=== PATIENT | female | born 1990 | race American Indian/Alaskan Native ===

== ENCOUNTER 2017-09-10 08:57 | Emergency (ER) | payer MEDICAID ==
[2017-09-10 09:54] LABS: Basophils % (Auto) 0.7 % (0.0-1.8); Eosinophils # (Auto) 0.2 K/mm3 (0.0-0.4); Eosinophils % (Auto) 4.9 % (0.0-4.3); Hemoglobin 11.8 gm/dl (10.1-14.3); Lymphocytes # (Auto) 1.6 K/mm3 (1.2-5.4); Lymphocytes % (Auto) 35.7 % (13.4-35.0); Mean Corpuscular HGB Conc 33 % (30-34); Mean Corpuscular Hemoglobin 32 pg (28-32); Mean Corpuscular Volume 98 fl (79-97); Monocytes # (Auto) 0.2 K/mm3 (0.0-0.8); Monocytes % (Auto) 5.6 % (0.0-7.3); Platelet Count 328 K/mm3 (140-440); Red Cell Distribution Width 12.6 % (13.2-15.2)
[2017-09-10 10:52] LABS: Bilirubin,Urine NEG (Negative); Blood,Urine LG (Negative); Color,Urine Yellow (Yellow); Mucus,Urine FEW /HPF; Nitrite,Urine NEG (Negative); Protein,Urine <15 mg/dL mg/dL (Negative); Urobilinogen,Urine < 2.0 mg/dL (<2.0)
[2017-09-10 11:10] LABS: WBC,Urine < 1.0 /HPF (0.0-6.0)
--- NOTE | 2017-09-10 11:43 | Ultrasound Report ---
FINAL REPORT PROCEDURE: US OB TRANSVAGINAL TECHNIQUE: Real-time transvaginal sonography of the pelvis was performed. HISTORY: ectopic with Methotrexate injections COMPARISON: None FINDINGS: The endometrial stripe measures 1.3 centimeters thick. No intrauterine gestation is identified. Small free fluid is present within the pelvis. The right ovary measures 4.9 x 2.2 x 4.1 centimeters and contains 2 cysts 2.1 x 2.1 x 1.8 centimeters and 1.4 x 1.0 x 1.2 centimeters. There is normal blood flow to the right ovary. The left ovary measures 3.2 x 1.6 x 2.1 centimeters and contains subcentimeter follicles. In the left adnexal region there appears to be a 2.9 x 1.9 x 2.2 centimeter lesion with internal 1.8 x 1.2 x 1.4 centimeter cystic focus. There is no evident yolk sac or pole. IMPRESSION: Left adnexal lesion with internal sac/cyst without yolk sac or pole. This is likely relayed known ectopic . Central cystic component suggested expected gestational age of 6 weeks 5 days. Right ovarian cysts. 1.3 centimeter thick endometrial stripe. No intrauterine gestation identified. Small free fluid within physiologic limits.
--- NOTE | 2017-09-10 11:52 | Ultrasound Report ---
FINAL REPORT PROCEDURE: US OB < = 14 WEEKS FETUS TECHNIQUE: Transabdominal ultrasound of the pelvis was performed. HISTORY: ectopic with Methotrexate injections COMPARISON: None FINDINGS: The uterus measures 9.7 x 6.8 x 6.7 centimeters. The endometrial stripe is 1.3 centimeters thick. There is no intrauterine gestation. The ovaries were better visualized transvaginally. IMPRESSION: Empty uterus. Please see transvaginal report.
[2017-09-10 17:18] VITALS: BP 131/90
--- NOTE | 2017-09-10 17:36 | Emergency Department Report ---
ED General Adult HPI - General Chief complaint: Vaginal Bleeding Stated complaint: ECTOPIC Time Seen by Provider: 09/10/17 17:23 Source: patient Mode of arrival: Ambulatory Limitations: No Limitations - History of Present Illness Initial comments: Patient is 26 years old female recently diagnosed with ectopic at [facility] ER on 08/26/2017 ,she received 1 dose of methotrexate and she was advised to come to the ER for second injection. Severity scale (0 -10): 0 - Related Data Allergies Allergy/AdvReac Type Severity Reaction Status Date / Time No Known Allergies Allergy Unverified 09/10/17 09:22 ED Review of Systems ROS: Stated complaint: ECTOPIC Other details as noted in HPI Comment: All other systems reviewed and negative Constitutional: denies: chills, fever Cardiovascular: denies: chest pain, palpitations Gastrointestinal: denies: abdominal pain, nausea, vomiting, diarrhea Musculoskeletal: denies: back pain ED Past Medical Hx - Past Medical History Previous Medical History?: Yes Additional medical history: Vaginal delivery - Surgical History Past Surgical History?: Yes Additional Surgical History: Cyst right eyebrow - Social History Smoking Status: Current Every Day Smoker Substance Use Type: Alcohol, Marijuana ED Physical Exam - General Limitations: No Limitations General appearance: alert, in no apparent distress - Head Head exam: Present: atraumatic, normocephalic, normal inspection - Eye Eye exam: Present: normal appearance, PERRL - ENT ENT exam: Present: normal exam, normal orophraynx, mucous membranes moist - Neck Neck exam: Present: normal inspection, full ROM. Absent: tenderness, meningismus, lymphadenopathy - Respiratory Respiratory exam: Present: normal lung sounds bilaterally. Absent: respiratory distress, chest wall tenderness - Cardiovascular Cardiovascular Exam: Present: regular rate, normal rhythm, normal heart sounds - GI/Abdominal GI/Abdominal exam: Present: soft, normal bowel sounds. Absent: distended, tenderness, guarding, rebound, rigid, organomegaly, mass, bruit, pulsatile mass , hernia - Extremities Exam Extremities exam: Present: normal inspection, full ROM, normal capillary refill - Back Exam Back exam: Present: normal inspection. Absent: tenderness, CVA tenderness (R), CVA tenderness (L) - Neurological Exam Neurological exam: Present: alert, oriented X3, CN II-XII intact, normal gait - Skin Skin exam: Present: warm, intact, normal color ED Course Vital Signs 09/10/17 09/10/17 09:23 17:17 Temperature 98.8 F 98.8 F Pulse Rate 94 H 91 H Respiratory 18 20 Rate Blood Pressure 117/72 131/90 O2 Sat by Pulse 94 100 Oximetry ED Medical Decision Making - Lab Data Result diagrams: 09/10/17 09:39 - Medical Decision Making Discussed with his doctor Umesh,he advised to give methotrexate and asked patient to follow up with her OB doctor in the office. Critical care attestation.: If time is entered above; I have spent that time in minutes in the direct care of this critically ill patient, excluding procedure time. ED Disposition Clinical Impression: Ectopic Disposition: DC-01 TO HOME OR SELFCARE Is pt being admited?: No Condition: Stable Instructions: Ectopic (ED) Referrals: PRIMARY CARE, [Primary Care Provider] - 3-5 Days
[2017-09-10] MEDS ORDERED: METHOTREXATE IM ONE (19:15)
== END 2017-09-10 20:07 | disposition home or self-care (01) ==
LOC: ED 08:57
DX: O00.90 Unspecified ectopic pregnancy without intrauterine pregnancy (principal); F17.200 Nicotine dependence, unspecified, uncomplicated; F12.10 Cannabis abuse, uncomplicated; Z3A.01 Less than 8 weeks gestation of pregnancy
CPT/HCPCS: 36415; 76801; 76817; 81001; 84702; 85025; 86850; 86900; 86901; 96372; 99284; J9260

== ENCOUNTER 2022-02-12 13:00 | Inpatient (IN) | payer SELFPAY ==
[2022-02-12 13:44] LABS: Basophils % (Auto) 0.6 % (0.0-1.8); Eosinophils # (Auto) 0.1 K/mm3 (0.0-0.4); Eosinophils % (Auto) 1.2 % (0.0-4.3); Hematocrit 42.8 % (30.3-42.9); Hemoglobin 14.3 gm/dl (10.1-14.3); Lymphocytes % (Auto) 18.5 % (13.4-35.0); Mean Corpuscular HGB Conc 34 % (30-34); Mean Corpuscular Volume 99 fl (79-97); Monocytes # (Auto) 0.7 K/mm3 (0.0-0.8); Monocytes % (Auto) 13.6 % (0.0-7.3); Platelet Count 300 K/mm3 (140-440); Red Blood Count 4.31 M/mm3 (3.65-5.03); Red Cell Distribution Width 12.9 % (13.2-15.2)
[2022-02-12 14:04] LABS: Blood Urea Nitrogen 8 mg/dL (7-17); Calcium 9.8 mg/dL (8.4-10.2); Hemolysis Index 12
[2022-02-12 14:13] LABS: BUN/Creatinine Ratio 11
[2022-02-12] MEDS ORDERED: ONDANSETRON 4 MG ODT TAB PO ONE (15:26)
[2022-02-12] MEDS ORDERED: MORPHINE 4 MG/1 ML INJ IM ONE ×2 (15:26→18:08)
--- NOTE | 2022-02-12 16:57 | Ultrasound Report ---
ULTRASOUND ABDOMEN, LIMITED (RIGHT UPPER QUADRANT) INDICATION / CLINICAL INFORMATION: ruq pain. COMPARISON: None available. FINDINGS: PANCREAS: Visualized portion shows no significant abnormality. LIVER: No significant abnormality. GALLBLADDER: Positive sonographic Menon's sign with multiple stones within the gallbladder lumen. BILE DUCTS: No significant abnormality. Common bile duct measures 12 mm. FREE FLUID: None. ADDITIONAL FINDINGS: None. IMPRESSION: 1. Cholelithiasis with a positive sonographic Menon's sign concerning for acute cholecystitis. 2. Dilation of the common bile duct without evidence of choledocholithiasis. Signer Name: Joe Min DO Signed: 02/12/2022 4:52 PM Workstation Name: [id number]
[2022-02-12 18:14] LABS: HCG Qualitative,Urine Negative (Negative)
[2022-02-12 18:16] LABS: Bilirubin,Urine NEG (Negative); Blood,Urine NEG (Negative); Color,Urine Yellow (Yellow); Mucus,Urine 3+ /HPF; Protein,Urine <15 mg/dL mg/dL (Negative); Urobilinogen,Urine < 2.0 mg/dL (<2.0)
--- NOTE | 2022-02-12 19:08 | Cat Scan Report ---
CT ABDOMEN AND PELVIS WITH CONTRAST HISTORY: abdominal pain 100 ml omni 300 . COMPARISON: None. TECHNIQUE: CT images of the abdomen and pelvis were obtained following administration of intravenous contrast. All CT scans at this location are performed using CT dose reduction for ALARA by means of automated exposure control. CONTRAST: 100 ml of intravenous contrast administered. FINDINGS: Lungs/bones: Lung bases are clear. No acute osseous abnormality or significant degenerative change. Abdomen/pelvis: The liver, spleen, pancreas, adrenals, kidneys, and proximal GI tract appear unremar kable. The gallbladder is distended with internal sludge/stone disease and mild wall thickening as well as p ericholecystic fluid. The CBD is also slightly dilated with distal tapering but no obvious stone or m ass on this exam. Urinary bladder is unremarkable. Uterus appears edematous. There is an involuting likely functional c yst in left ovary. Trace pelvic free fluid is present. No acute colonic abnormality identified. IMPRESSION: 1. Abnormal appearance of the gallbladder worrisome for cholecystitis. 2. Abnormal dilatation of the CBD with distal tapering. No obvious stone disease or mass. Consider no nemergent follow-up ERCP or MRCP once clinically feasible. 3. Likely physiologic findings involving the reproductive organs. Signer Name: Irwin Hassan MD Signed: 02/12/2022 7:03 PM Workstation Name: [id number]
[2022-02-12 19:58] LABS: Alanine Aminotransferase 14 units/L (7-56)
[2022-02-12 20:02] LABS: Bilirubin,Direct < 0.2 mg/dL (0-0.2)
--- NOTE | 2022-02-12 20:34 | Emergency Department Report ---
ED Abdominal Pain HPI - General Chief Complaint: Abdominal Pain Stated Complaint: RUQ PAIN Time Seen by Provider: 02/12/22 15:11 Source: patient Mode of arrival: Ambulatory Limitations: No Limitations - History of Present Illness Initial Comments: 31-year-old black female with a past medical history of gallstones presents to the emergency department for evaluation of few day history of worsening right upper quadrant pain along with nausea and vomiting. She states that pain has been 10 out of 10, and she has been unable to eat anything for the past 2 to 3 days because whenever she eats it makes the pain significantly worse. She states that she has also had intermittent fever but denies dysuria and vaginal discharge. She states that her last menstrual period was January 20. MD Complaint: abdominal pain -: Gradual, days(s) (2-3) Location: RUQ Radiation: none Migration to: no migration Severity scale (0 -10): 10 Quality: aching Consistency: constant Worsens With: eating Associated Symptoms: nausea, vomiting, fever. denies: diarrhea, chills, dysuria, hematemesis, hematochezia, melena, hematuria, anorexia, syncope - Related Data LMP (females 10-50): 3 weeks Allergies Allergy/AdvReac Type Severity Reaction Status Date / Time No Known Allergies Allergy Verified 02/12/22 13:13 ED Review of Systems ROS: Stated complaint: RUQ PAIN Other details as noted in HPI Comment: All other systems reviewed and negative Constitutional: fever, weakness. denies: chills, diaphoresis, malaise Eyes: denies: vision change ENT: denies: throat pain, congestion Respiratory: denies: cough, orthopnea, shortness of breath, SOB with exertion, SOB at rest, stridor, wheezing Cardiovascular: denies: chest pain, palpitations, dyspnea on exertion, ort hopnea, edema, syncope, paroxysmal nocturnal dyspnea Gastrointestinal: abdominal pain, nausea, vomiting. denies: diarrhea, hematemesis, melena Genitourinary: denies: urgency, dysuria, frequency, hematuria, discharge Musculoskeletal: back pain Skin: denies: rash, lesions Neurological: denies: headache, weakness Hematological/Lymphatic: denies: easy bleeding, easy bruising ED Past Medical Hx - Past Medical History Additional medical history: Vaginal delivery - Surgical History Additional Surgical History: Cyst right eyebrow - Social History Smoking Status: Current Every Day Smoker Substance Use Type: Alcohol, Marijuana ED Physical Exam - General Limitations: No Limitations General appearance: alert, in no apparent distress - Head Head exam: Present: atraumatic, normocephalic - Eye Eye exam: Present: normal appearance. Absent: conjunctival injection - Neck Neck exam: Present: normal inspection, full ROM. Absent: tenderness, lymphadenopathy - Respiratory Respiratory exam: Present: normal lung sounds bilaterally. Absent: respiratory distress, wheezes, rales, rhonchi, stridor, chest wall tenderness - Cardiovascular Cardiovascular Exam: Present: regular rate, normal heart sounds - GI/Abdominal GI/Abdominal exam: Present: soft, tenderness (Right upper quadrant), normal bowel sounds. Absent: distended, guarding, rebound, rigid - Extremities Exam Extremities exam: Present: normal inspection, normal capillary refill. Absent: pedal edema, joint swelling, calf tenderness - Back Exam Back exam: Present: normal inspection, tenderness. Absent: CVA tenderness (R), CVA tenderness (L), vertebral tenderness - Neurological Exam Neurological exam: Present: alert, oriented X3, normal gait - Psychiatric Psychiatric exam: Present: normal affect, normal mood - Skin Skin exam: Present: warm, dry, intact, normal color ED Course Vital Signs 02/12/22 13:11 Temperature 98.4 F Pulse Rate 98 H Respiratory 18 Rate Blood Pressure 120/83 [Left] O2 Sat by Pulse 99 Oximetry ED Medical Decision Making - Lab Data Result diagrams: 02/12/22 13:18 02/12/22 13:18 - Radiology Data Radiology results: report reviewed, image reviewed Ultrasound abdomen limited: FINDINGS: PANCREAS: Visualized portion shows no significant abnormality. LIVER: No significant abnormality. GALLBLADDER: Positive sonographic Menon's sign with multiple stones within the gallbladder lumen. BILE DUCTS: No significant abnormality. Common bile duct measures 12 mm. FREE FLUID: None. ADDITIONAL FINDINGS: None. IMPRESSION: 1. Cholelithiasis with a positive sonographic Menon's sign concerning for acute cholecystitis. 2. Dilation of the common bile duct without evidence of choledocholithiasis. CT abdomen and pelvis with contrast:. FINDINGS: Lungs/bones: Lung bases are clear. No acute osseous abnormality or significant degenerative change. Abdomen/pelvis: The liver, spleen, pancreas, adrenals, kidneys, and proximal GI tract appear unremarkable. The gallbladder is distended with internal sludge/stone disease and mild wall thickening as well as pericholecystic fluid. The CBD is also slightly dilated with distal tapering but no obvious stone or mass on this exam. Urinary bladder is unremarkable. Uterus appears edematous. There is an involuting likely functional cyst in left ovary. Trace pelvic free fluid is present. No acute colonic abnormality identified. IMPRESSION: 1. Abnormal appearance of the gallbladder worrisome for cholecystitis. 2. Abnormal dilatation of the CBD with distal tapering. No obvious stone disease or mass. Consider nonemergent follow-up ERCP or MRCP once clinically feasible. 3. Likely physiologic findings involving the reproductive organs. - Medical Decision Making 31-year-old black female with a past medical history of gallstones presents to the emergency department for evaluation of few day history of worsening right upper quadrant pain along with nausea and vomiting. She states that pain has been 10 out of 10, and she has been unable to eat anything for the past 2 to 3 days because whenever she eats it makes the pain significantly worse. She states that she has also had intermittent fever but denies dysuria and vaginal discharge. She states that her last menstrual period was January 20. Ultrasound abdomen limited positive for cholelithiasis with positive Menon sign concerning for acute cholecystitis. CT abdomen and pelvis confirmed probable acute cholecystitis. Patient discussed with Dr. Chaudhari, general surgery, who stated patient should be admitted to the hospitalist service for evaluation and possible cholecystectomy in the a.m. per her service. IV fluids, Zosyn, and pain management started. Patient will be kept NPO. Case discussed with Dr. Pereira who will admit patient for evaluation in the a.m. by general surgery. Plan of care discussed with patient and she verbalizes understanding of and agreement with. Critical care attestation.: If time is entered above; I have spent that time in minutes in the direct care of this critically ill patient, excluding procedure time. ED Disposition Clinical Impression: Acute cholecystitis Disposition: ADMITTED INPATIENT Is pt being admited?: Yes Does the pt Need Aspirin: No Condition: Stable Instructions: Abdominal Pain (ED)
[2022-02-12] MEDS ORDERED: PIPERACIL/TAZOBACTA 4.5/NS 100 4.5 GM/100 ML VIAL IV ONE (21:18)
[2022-02-12] MEDS ORDERED: ONDANSETRON 4 MG/2 ML INJ IV ONE (21:19)
[2022-02-12] MEDS ORDERED: MORPHINE 4 MG/1 ML INJ IV ONE (21:19)
[2022-02-12] MEDS ORDERED: SODIUM CHLORIDE 0.9% 1000 ML 1,000 ML IV SCH (21:30)
[2022-02-12] MEDS ORDERED: MORPHINE 4 MG/1 ML INJ IV PRN (21:33)
[2022-02-12] MEDS ORDERED: ONDANSETRON 4 MG/2 ML INJ IV PRN (21:33)
[2022-02-12] MEDS ORDERED: ALBUTEROL 2.5 MG/3 ML NEBU IH PRN (21:33)
[2022-02-12] MEDS ORDERED: ACETAMINOPHEN 325 MG TAB PO PRN (21:33)
--- NOTE | 2022-02-12 21:39 | History and Physical Report ---
History of Present Illness Date of examination: 02/12/22 Date of admission: 02/12/22 Chief complaint: Abdominal pain Right upper quadrant pain History of present illness: 31-year-old black female with a past medical history of gallstones presents to the emergency department for evaluation of few day history of worsening right upper quadrant pain along with nausea and vomiting. She states that pain has been 10 out of 10, and she has been unable to eat anything for the past 2 to 3 days because whenever she eats it makes the pain significantly worse. She states that she has also had intermittent fever but denies dysuria and vaginal discharge. She states that her last menstrual period was January 20. Ultrasound abdomen limited positive for cholelithiasis with positive Menon sign concerning for acute cholecystitis. CT abdomen and pelvis confirmed probable acute cholecystitis. Patient discussed with Dr. Chaudhari, general surgery, who stated patient should be admitted to the hospitalist service for evaluation and possible cholecystectomy in the a.m. IV fluids, Zosyn, and pain management started. Patient will be kept NPO. Past History Past Medical History: other (Vaginal delivery) Past Surgical History: Other (Cyst right eyebrow) Social history: smoking, alcohol abuse, other (Marijuana abuse) Family history: no significant family history Medications and Allergies Allergies Allergy/AdvReac Type Severity Reaction Status Date / Time No Known Allergies Allergy Verified 02/12/22 13:13 Active Meds: Active Medications Sodium Chloride (Nacl 0.9% 1000 Ml) 1,000 mls @ 125 mls/hr IV DIRECT FANNIE Piperacillin Sod/Tazobactam Sod (Zosyn/Ns 4.5gm/100ml) 4.5 gm in 100 mls @ 200 mls/hr IV ONCE ONE; Protocol Stop: 02/12/22 21:47 Review of Systems All systems: negative Gastrointestinal: abdominal pain, nausea, vomiting, other (Right upper quadrant pain) Exam - Constitutional Vitals: Temp Pulse Resp BP Pulse Ox 98.4 F 98 H 18 120/83 99 02/12/22 13:11 02/12/22 13:11 02/12/22 13:11 02/12/22 13:11 02/12/22 13:11 General appearance: Present: no acute distress, well-nourished - EENT Eyes: Present: PERRL ENT: hearing intact, clear oral mucosa - Neck Neck: Present: supple, normal ROM - Respiratory Respiratory effort: normal Respiratory: bilateral: CTA - Cardiovascular Heart Sounds: Present: S1 & S2. Absent: rub, click - Extremities Extremities: pulses symmetrical, No edema Peripheral Pulses: within normal limits - Abdominal General gastrointestinal: Present: soft, non-tender, non-distended, normal bowel sounds Female genitourinary: Present: normal - Integumentary Integumentary: Present: clear, warm, dry - Musculoskeletal Musculoskeletal: gait normal, strength equal bilaterally - Psychiatric Psychiatric: appropriate mood/affect, intact judgment & insight - Neurologic Neurologic: CNII-XII intact, moves all extremities Results - Labs CBC & Chem 7: 02/12/22 13:18 02/12/22 13:18 Labs: Laboratory Last Values WBC 5.5 K/mm3 (4.5-11.0) 02/12/22 13:18 RBC 4.31 M/mm3 (3.65-5.03) 02/12/22 13:18 Hgb 14.3 gm/dl (10.1-14.3) 02/12/22 13:18 Hct 42.8 % (30.3-42.9) 02/12/22 13:18 MCV 99 fl (79-97) H 02/12/22 13:18 MCH 33 pg (28-32) H 02/12/22 13:18 MCHC 34 % (30-34) 02/12/22 13:18 RDW 12.9 % (13.2-15.2) L 02/12/22 13:18 Plt Count 300 K/mm3 (140-440) 02/12/22 13:18 Lymph % (Auto) 18.5 % (13.4-35.0) 02/12/22 13:18 [place] % (Auto) 13.6 % (0.0-7.3) H 02/12/22 13:18 Eos % (Auto) 1.2 % (0.0-4.3) 02/12/22 13:18 Baso % (Auto) 0.6 % (0.0-1.8) 02/12/22 13:18 Lymph # (Auto) 1.0 K/mm3 (1.2-5.4) L 02/12/22 13:18 [place] # (Auto) 0.7 K/mm3 (0.0-0.8) 02/12/22 13:18 Eos # (Auto) 0.1 K/mm3 (0.0-0.4) 02/12/22 13:18 Baso # (Auto) 0.0 K/mm3 (0.0-0.1) 02/12/22 13:18 Seg Neutrophils % 66.1 % (40.0-70.0) 02/12/22 13:18 Seg Neutrophils # 3.6 K/mm3 (1.8-7.7) 02/12/22 13:18 Sodium 136 mmol/L (137-145) L 02/12/22 13:18 Potassium 4.6 mmol/L (3.6-5.0) 02/12/22 13:18 Chloride 101.4 mmol/L (98-107) 02/12/22 13:18 Carbon Dioxide 25 mmol/L (22-30) 02/12/22 13:18 Anion Gap 14 mmol/L 02/12/22 13:18 BUN 8 mg/dL (7-17) 02/12/22 13:18 Creatinine 0.7 mg/dL (0.6-1.2) 02/12/22 13:18 Estimated GFR > 60 ml/min 02/12/22 13:18 BUN/Creatinine Ratio 11 % 02/12/22 13:18 Glucose 113 mg/dL (65-100) H 02/12/22 13:18 Calcium 9.8 mg/dL (8.4-10.2) 02/12/22 13:18 Total Bilirubin 0.30 mg/dL (0.1-1.2) 02/12/22 13:18 Direct Bilirubin < 0.2 mg/dL (0-0.2) 02/12/22 13:18 Indirect Bilirubin 0.1 mg/dL 02/12/22 13:18 AST 18 units/L (5-40) 02/12/22 13:18 ALT 14 units/L (7-56) 02/12/22 13:18 Alkaline Phosphatase 81 units/L (35-129) 02/12/22 13:18 Total Protein 8.9 g/dL (6.3-8.2) H 02/12/22 13:18 Albumin 5.0 g/dL (3.9-5) 02/12/22 13:18 Albumin/Globulin Ratio 1.3 % 02/12/22 13:18 Lipase 18 units/L (13-60) 02/12/22 03:18 Urine Color Yellow (Yellow) 02/12/22 Unknown Urine Turbidity Clear (Clear) 02/12/22 Unknown Urine pH 5.0 (5.0-7.0) 02/12/22 Unknown Ur Specific [place] 1.019 (1.003-1.030) 02/12/22 Unknown Urine Protein <15 mg/dl mg/dL (Negative) 02/12/22 Unknown Urine Glucose (UA) Neg mg/dL (Negative) 02/12/22 Unknown Urine Ketones 80 mg/dL (Negative) 02/12/22 Unknown Urine Blood Neg (Negative) 02/12/22 Unknown Urine Nitrite Neg (Negative) 02/12/22 Unknown Ur Reducing Substances Not Reportable 02/12/22 Unknown Urine Bilirubin Neg (Negative) 02/12/22 Unknown Urine Ictotest Not Reportable 02/12/22 Unknown Urine Urobilinogen < 2.0 mg/dL (<2.0) 02/12/22 Unknown Ur Leukocyte Esterase Neg (Negative) 02/12/22 Unknown Urine WBC (Auto) 1.0 /HPF (0.0-6.0) 02/12/22 Unknown Urine RBC (Auto) 1.0 /HPF (0.0-6.0) 02/12/22 Unknown U Epithel Cells (Auto) 2.0 /HPF (0-13.0) 02/12/22 Unknown Urine Mucus 3+ /HPF 02/12/22 Unknown Urine HCG, Qual Negative (Negative) 02/12/22 Unknown - Imaging and Cardiology CT scan - abdomen: report reviewed Assessment and Plan VTE prophylaxis?: Chemical Plan of care discussed with patient/family: Yes - Patient Problems (1) Acute cholecystitis Current Visit: Yes Status: Acute Plan to address problem: Admit the patient to the medical floor. NPO. D5 half-normal saline at the rate of 100 cc/h. Pepcid 20 mg IV every 12 hours. Zosyn 4.5 g IV every 8 hours. Morphine 2 mg IV every 4 hours as needed. Reconsult surgery for evaluation and possible cholecystectomy in the morning. Recheck CBC BMP in the morning (2) Tobacco abuse Current Visit: Yes Status: Acute Plan to address problem: We counseled the patient regarding quitting smoking. We put the patient on olga aiden patch (3) Alcohol abuse Current Visit: Yes Status: Acute Plan to address problem: We counseled the patient regarding quit drinking. We also put the patient on thiamine folic acid and banana bag (4) DVT prophylaxis Current Visit: Yes Status: Acute Plan to address problem: Heparin 5000 units subcu every 12 hours for DVT prophylaxis. Pepcid 20 mg IV every 12 hours for GI prophylaxis. Patient is a full code
[2022-02-12] MEDS ORDERED: D5W/0.45% NACL 1,000 ML IV SCH (22:00)
[2022-02-12] MEDS: MORPHINE 2 MG/1 ML INJ IV PRN (23:18)
[2022-02-13] MEDS ORDERED: ZOLPIDEM 5 MG TAB PO PRN (00:11)
[2022-02-13] MEDS: THIAMINE 100 MG, FOLIC ACID 1 MG, MULTIPLE VITAMIN INJ, ADULT 10 ML in SODIUM CHLORIDE ... IV SCH (02:02)
[2022-02-13] MEDS: MORPHINE 2 MG/1 ML INJ IV PRN ×3 (02:25→10:51)
[2022-02-13] MEDS: IPRATROPIUM/ALBUTEROL SULFATE 3 ML AMPUL.NEB IH SCH ×2 (03:03→09:00)
[2022-02-13] MEDS: PIPERACIL/TAZOBACTA 4.5/NS 100 4.5 GM/100 ML VIAL IV SCH ×3 (06:04→21:23)
[2022-02-13 06:26] LABS: Basophils % (Auto) 0.3 % (0.0-1.8); Eosinophils % (Auto) 0.6 % (0.0-4.3); Hematocrit 37.7 % (30.3-42.9); Hemoglobin 12.8 gm/dl (10.1-14.3); Lymphocytes % (Auto) 14.9 % (13.4-35.0); Mean Corpuscular HGB Conc 34 % (30-34); Mean Corpuscular Volume 98 fl (79-97); Monocytes # (Auto) 0.7 K/mm3 (0.0-0.8); Monocytes % (Auto) 10.8 % (0.0-7.3); Platelet Count 254 K/mm3 (140-440); Red Blood Count 3.84 M/mm3 (3.65-5.03); Red Cell Distribution Width 12.2 % (13.2-15.2)
[2022-02-13 06:35] LABS: INR 0.88 (0.87-1.13)
[2022-02-13 06:46] LABS: Alanine Aminotransferase 11 units/L (7-56); Albumin 4.1 g/dL (3.9-5); Blood Urea Nitrogen 6 mg/dL (7-17); Calcium 8.8 mg/dL (8.4-10.2); Hemolysis Index 5
[2022-02-13 06:55] LABS: BUN/Creatinine Ratio 12
[2022-02-13] MEDS: FAMOTIDINE 20 MG/2 ML INJ IV SCH ×3 (07:31→21:23)
[2022-02-13] MEDS: HEPARIN 5,000 UNIT/1 ML VIAL SUB-Q SCH ×3 (07:31→21:23)
--- NOTE | 2022-02-13 09:00 | Progress Note ---
Assessment and Plan Assessment and plan: --Acute cholecystitis Continue NPO. IV fluids IV Protonix , pain medications, IV antibiotics Follow surgery evaluation and recommendations For possible cholecystectomy -- Abnormal dilation of CBD ; Follow surgery evaluation , consider GI evaluation if needed consider MRCP, supportive care --Ongoing tobacco abuse Smoking cessation counseling done , strongly advised to quit tobacco use Risks of tobacco use explained in detail .patient verbalized understanding Nicotine patch as needed , spent 15 minutes counseling the patient --History of alcohol abuse Patient strongly advised to quit alcohol use If she has a chronic alcohol problem, advised to join alcohol Anonymous support group I advised her to seek alcohol rehabilitation when she is medically stable Thiamine folic acid and multivitamin Monitor for any alcohol withdrawal symptoms and initiate CIWA protocols if needed --DVT prophylaxis Subcu heparin. --full CODE STATUS we will closely monitor the patient and adjust management as needed Follow surgery evaluation and recommendations Plan of care reviewed with the patient and her nurse Disposition; follow clinically, follow consultants recommendation Discharge when medically stable History Interval history: I have seen and examined the patient at the bedside this morning Patient's chart and medications reviewed Admitted with right upper quadrant abdominal pain, work-up consistent with acute cholecystitis Surgery consulted, possible cholecystectomy today Patient has mild abdominal discomfort Vital signs reviewed Hospitalist Physical - Constitutional Vitals: Temp Pulse Resp BP Pulse Ox 98.6 F 63 18 133/85 100 02/13/22 06:03 02/13/22 06:03 02/13/22 06:03 02/13/22 06:03 02/13/22 06:03 General appearance: Present: no acute distress, well-nourished - EENT Eyes: Present: PERRL, EOM intact - Neck Neck: Present: supple, normal ROM - Respiratory Respiratory effort: normal Respiratory: bilateral: diminished, negative: rales, rhonchi, wheezing - Cardiovascular Rhythm: regular Heart Sounds: Present: S1 & S2 - Extremities Extremities: no ischemia, No edema - Abdominal General gastrointestinal: soft, tender (No guarding no rigidity), non-distended, normal bowel sounds - Integumentary Integumentary: Present: clear, warm - Psychiatric Psychiatric: appropriate mood/affect, cooperative - Neurologic Neurologic: moves all extremities Results - Labs CBC & Chem 7: 02/13/22 05:46 02/13/22 05:46 Labs: Laboratory Last Values WBC 6.7 K/mm3 (4.5-11.0) 02/13/22 05:46 RBC 3.84 M/mm3 (3.65-5.03) 02/13/22 05:46 Hgb 12.8 gm/dl (10.1-14.3) 02/13/22 05:46 Hct 37.7 % (30.3-42.9) 02/13/22 05:46 MCV 98 fl (79-97) H 02/13/22 05:46 MCH 33 pg (28-32) H 02/13/22 05:46 MCHC 34 % (30-34) 02/13/22 05:46 RDW 12.2 % (13.2-15.2) L 02/13/22 05:46 Plt Count 254 K/mm3 (140-440) 02/13/22 05:46 Lymph % (Auto) 14.9 % (13.4-35.0) 02/13/22 05:46 [place] % (Auto) 10.8 % (0.0-7.3) H 02/13/22 05:46 Eos % (Auto) 0.6 % (0.0-4.3) 02/13/22 05:46 Baso % (Auto) 0.3 % (0.0-1.8) 02/13/22 05:46 Lymph # (Auto) 1.0 K/mm3 (1.2-5.4) L 02/13/22 05:46 [place] # (Auto) 0.7 K/mm3 (0.0-0.8) 02/13/22 05:46 Eos # (Auto) 0.0 K/mm3 (0.0-0.4) 02/13/22 05:46 Baso # (Auto) 0.0 K/mm3 (0.0-0.1) 02/13/22 05:46 Seg Neutrophils % 73.4 % (40.0-70.0) H 02/13/22 05:46 Seg Neutrophils # 4.9 K/mm3 (1.8-7.7) 02/13/22 05:46 PT 12.9 Sec. (12.2-14.9) 02/13/22 05:46 INR 0.88 (0.87-1.13) 02/13/22 05:46 Sodium 137 mmol/L (137-145) 02/13/22 05:46 Potassium 3.7 mmol/L (3.6-5.0) 02/13/22 05:46 Chloride 102.7 mmol/L (98-107) 02/13/22 05:46 Carbon Dioxide 20 mmol/L (22-30) L 02/13/22 05:46 Anion Gap 18 mmol/L 02/13/22 05:46 BUN 6 mg/dL (7-17) L 02/13/22 05:46 Creatinine 0.5 mg/dL (0.6-1.2) L 02/13/22 05:46 Estimated GFR > 60 ml/min 02/13/22 05:46 BUN/Creatinine Ratio 12 % 02/13/22 05:46 Glucose 109 mg/dL (65-100) H 02/13/22 05:46 Calcium 8.8 mg/dL (8.4-10.2) 02/13/22 05:46 Total Bilirubin 0.40 mg/dL (0.1-1.2) 02/13/22 05:46 Direct Bilirubin < 0.2 mg/dL (0-0.2) 02/12/22 13:18 Indirect Bilirubin 0.1 mg/dL 02/12/22 13:18 AST 13 units/L (5-40) 02/13/22 05:46 ALT 11 units/L (7-56) 02/13/22 05:46 Alkaline Phosphatase 82 units/L (35-129) 02/13/22 05:46 Total Protein 7.5 g/dL (6.3-8.2) 02/13/22 05:46 Albumin 4.1 g/dL (3.9-5) 02/13/22 05:46 Albumin/Globulin Ratio 1.2 % 02/13/22 05:46 Lipase 18 units/L (13-60) 02/12/22 03:18 Urine Color Yellow (Yellow) 02/12/22 Unknown Urine Turbidity Clear (Clear) 02/12/22 Unknown Urine pH 5.0 (5.0-7.0) 02/12/22 Unknown Ur Specific [place] 1.019 (1.003-1.030) 02/12/22 Unknown Urine Protein <15 mg/dl mg/dL (Negative) 02/12/22 Unknown Urine Glucose (UA) Neg mg/dL (Negative) 02/12/22 Unknown Urine Ketones 80 mg/dL (Negative) 02/12/22 Unknown Urine Blood Neg (Negative) 02/12/22 Unknown Urine Nitrite Neg (Negative) 02/12/22 Unknown Ur Reducing Substances Not Reportable 02/12/22 Unknown Urine Bilirubin Neg (Negative) 02/12/22 Unknown Urine Ictotest Not Reportable 02/12/22 Unknown Urine Urobilinogen < 2.0 mg/dL (<2.0) 02/12/22 Unknown Ur Leukocyte Esterase Neg (Negative) 02/12/22 Unknown Urine WBC (Auto) 1.0 /HPF (0.0-6.0) 02/12/22 Unknown Urine RBC (Auto) 1.0 /HPF (0.0-6.0) 02/12/22 Unknown U Epithel Cells (Auto) 2.0 /HPF (0-13.0) 02/12/22 Unknown Urine Mucus 3+ /HPF 02/12/22 Unknown Urine HCG, Qual Negative (Negative) 02/12/22 Unknown Jaramillo/IV: Voiding Method Toilet Active Medications - Current Medications Current Medications: Generic Name Dose Route Start Last Admin Trade Name Freq PRN Reason Stop Dose Admin Acetaminophen 650 mg 02/12/22 21:33 Acetaminophen 325 Mg Tab PO Q4H PRN Pain MILD(1-3)/Fever >100.5/IGNACIO Albuterol 2.5 mg 02/12/22 21:33 Albuterol 2.5 Mg/3 Ml Nebu IH Q3HRT PRN Shortness Of Breath Albuterol/Ipratropium 1 ampul 02/13/22 02:00 02/13/22 03:03 Ipratropium/Albuterol Sulfate 3 Ml Ampul.Neb IH Not Given Q6HRT FANNIE Famotidine 20 mg 02/12/22 22:00 02/13/22 07:31 Famotidine 20 Mg/2 Ml Inj IV Not Given BID FANNIE Heparin Sodium (Porcine) 5,000 unit 02/12/22 22:00 02/13/22 07:31 Heparin 5,000 Unit/1 Ml Vial SUB-Q Not Given Q12HR FANNIE Dextrose/Sodium Chloride 1,000 mls @ 100 mls/hr 02/12/22 22:00 02/13/22 06:04 D5/0.45ns IV 100 mls/hr DIRECT FANNIE Administration Piperacillin Sod/Tazobactam Sod 4.5 gm in 100 mls @ 200 mls/hr 02/13/22 06:00 02/13/22 06:04 Zosyn/Ns 4.5gm/100ml IV 200 mls/hr Q8HR FANNIE Administration Protocol Thiamine HCl 100 mg/ Folic 1,011.2 mls @ 250 mls/hr 02/12/22 21:39 02/13/22 02:02 Acid 1 mg/ Multivitamins/ IV 02/14/22 21:38 250 mls/hr Minerals 10 ml/ Sodium DAILY@2300 FANNIE Administration Chloride Morphine Sulfate 2 mg 02/12/22 21:33 02/13/22 06:04 Morphine 2 Mg/1 Ml Inj IV 2 mg Q4H PRN Administration Pain, Moderate (4-6) Morphine Sulfate 4 mg 02/12/22 21:33 Morphine 4 Mg/1 Ml Inj IV Q4H PRN Pain , Severe (7-10) Ondansetron HCl 4 mg 02/12/22 21:33 Ondansetron 4 Mg/2 Ml Inj IV Q8H PRN Nausea And Vomiting Sodium Chloride 10 ml 02/12/22 22:00 02/13/22 07:32 Sodium Chloride 0.9% 10 Ml Flush Syringe IV Not Given BID FANNIE Sodium Chloride 10 ml 02/12/22 21:33 02/13/22 06:05 Sodium Chloride 0.9% 10 Ml Flush Syringe IV 10 ml PRN PRN Administration LINE FLUSH Zolpidem Tartrate 5 mg 02/13/22 00:11 02/13/22 00:56 Zolpidem 5 Mg Tab PO 5 mg QHS PRN Administration Sleep
--- NOTE | 2022-02-13 09:27 | Consultation ---
History of Present Illness Consult date: 02/13/22 Reason for consult: gallstones Chief complaint: GALLSTONES - History of present illness History of present illness: 31-year-old female with a past medical history of gallstones who presents to the emergency room with acute onset right upper quadrant abdominal pain, sharp, severe, radiating to the back for the past 4 days. The patient states it started suddenly and has gradually become worse. She states that she also had associated nausea and bilious emesis. No alleviating or exacerbating factors. She states that several years ago she had pain Eml[place] to this and was seen at an urgent care. She was told that her gallbladder was inflamed and advised to stick to a low-fat diet. She states that she did change her diet and this is her first episode since then. No fevers or chills. No chest pain or shortness of breath. She does complain of a dry mouth. She states for the past few days she is only been drinking water and juice. The pain has not subsided. Past History Past Medical History: other (Vaginal delivery, gallstones) Past Surgical History: Other (Cyst right eyebrow) Social history: smoking, alcohol abuse, other (Marijuana abuse) Family history: no significant family history Medications and Allergies Allergies Allergy/AdvReac Type Severity Reaction Status Date / Time No Known Allergies Allergy Verified 02/12/22 13:13 Active Meds: Active Medications Acetaminophen (Acetaminophen 325 Mg Tab) 650 mg PO Q4H PRN PRN Reason: Pain MILD(1-3)/Fever >100.5/IGNACIO Albuterol (Albuterol 2.5 Mg/3 Ml Nebu) 2.5 mg IH Q3HRT PRN PRN Reason: Shortness Of Breath Albuterol/Ipratropium (Ipratropium/Albuterol Sulfate 3 Ml Ampul.Neb) 1 ampul IH Q6HRT [facility] Last Admin: 02/13/22 09:00 Dose: 1 ampul Famotidine (Famotidine 20 Mg/2 Ml Inj) 20 mg IV BID [facility] Last Admin: 02/13/22 07:31 Dose: Not Given Heparin Sodium (Porcine) (Heparin 5,000 Unit/1 Ml Vial) 5,000 unit SUB-Q Q12HR [facility] Last Admin: 02/13/22 07:31 Dose: Not Given Dextrose/Sodium Chloride (D5/0.45ns) 1,000 mls @ 100 mls/hr IV DIRECT FANNIE Last Admin: 02/13/22 06:04 Dose: 100 mls/hr Piperacillin Sod/Tazobactam Sod (Zosyn/Ns 4.5gm/100ml) 4.5 gm in 100 mls @ 200 mls/hr IV Q8HR FANNIE; Protocol Last Admin: 02/13/22 06:04 Dose: 200 mls/hr Thiamine HCl 100 mg/ Folic Acid 1 mg/ Multivitamins/Minerals 10 ml/ Sodium Chlor gerry 1,011.2 mls @ 250 mls/hr IV DAILY@2300 [facility] Stop: 02/14/22 21:38 Last Admin: 02/13/22 02:02 Dose: 250 mls/hr Morphine Sulfate (Morphine 2 Mg/1 Ml Inj) 2 mg IV Q4H PRN PRN Reason: Pain, Moderate (4-6) Last Admin: 02/13/22 06:04 Dose: 2 mg Morphine Sulfate (Morphine 4 Mg/1 Ml Inj) 4 mg IV Q4H PRN PRN Reason: Pain , Severe (7-10) Ondansetron HCl (Ondansetron 4 Mg/2 Ml Inj) 4 mg IV Q8H PRN PRN Reason: Nausea And Vomiting Sodium Chloride (Sodium Chloride 0.9% 10 Ml Flush Syringe) 10 ml IV BID [facility] Last Admin: 02/13/22 07:32 Dose: Not Given Sodium Chloride (Sodium Chloride 0.9% 10 Ml Flush Syringe) 10 ml IV PRN PRN PRN Reason: LINE FLUSH Last Admin: 02/13/22 06:05 Dose: 10 ml Zolpidem Tartrate (Zolpidem 5 Mg Tab) 5 mg PO QHS PRN PRN Reason: Sleep Last Admin: 02/13/22 00:56 Dose: 5 mg Review of Systems All systems: negative (10 point ROS performed and negative except for that listed in HPI) Exam Vital Signs Temp Pulse Resp BP Pulse Ox 98.4 F 98 H 18 120/83 99 02/12/22 13:11 02/12/22 13:11 02/12/22 13:11 02/12/22 13:11 02/12/22 13:11 Narrative exam: Gen.: Awake, alert, oriented x3. No apparent distress ENT: Trachea midline. No lymphadenopathy. No scleral icterus or conjunctival pallor CV: S1, S2 present Respiratory: No audible wheezes Abdomen: Soft, nondistended, right upper quadrant tenderness to palpation. Voluntary guarding. No rebound, rigidity Extremities: No clubbing, cyanosis, edema Results - Labs 02/13/22 05:46 02/13/22 05:46 Abnormal lab results 02/12/22 02/12/22 02/12/22 Range/Units 13:18 13:18 13:18 MCV 99 H (79-97) fl MCH 33 H (28-32) pg RDW 12.9 L (13.2-15.2) % [place] % (Auto) 13.6 H (0.0-7.3) % Lymph # (Auto) 1.0 L (1.2-5.4) K/mm3 Seg Neutrophils % (40.0-70.0) % Sodium 136 L (137-145) mmol/L Carbon Dioxide (22-30) mmol/L BUN (7-17) mg/dL Creatinine (0.6-1.2) mg/dL Glucose 113 H (65-100) mg/dL Total Protein 8.9 H (6.3-8.2) g/dL 02/13/22 02/13/22 Range/Units 05:46 05:46 MCV 98 H (79-97) fl MCH 33 H (28-32) pg RDW 12.2 L (13.2-15.2) % [place] % (Auto) 10.8 H (0.0-7.3) % Lymph # (Auto) 1.0 L (1.2-5.4) K/mm3 Seg Neutrophils % 73.4 H (40.0-70.0) % Sodium (137-145) mmol/L Carbon Dioxide 20 L (22-30) mmol/L BUN 6 L (7-17) mg/dL Creatinine 0.5 L (0.6-1.2) mg/dL Glucose 109 H (65-100) mg/dL Total Protein (6.3-8.2) g/dL Diabetes panel 02/12/22 02/12/22 02/13/22 Range/Units 13:18 13:18 05:46 Sodium 136 L 137 (137-145) mmol/L Potassium 4.6 3.7 (3.6-5.0) mmol/L Chloride 101.4 102.7 (98-107) mmol/L Carbon Dioxide 25 20 L (22-30) mmol/L BUN 8 6 L (7-17) mg/dL Creatinine 0.7 0.5 L (0.6-1.2) mg/dL Glucose 113 H 109 H (65-100) mg/dL Calcium 9.8 8.8 (8.4-10.2) mg/dL AST 18 13 (5-40) units/L ALT 14 11 (7-56) units/L Alkaline Phosphatase 81 82 (35-129) units/L Total Protein 8.9 H 7.5 (6.3-8.2) g/dL Albumin 5.0 4.1 (3.9-5) g/dL Calcium panel 02/12/22 02/12/22 02/13/22 Range/Units 13:18 13:18 05:46 Calcium 9.8 8.8 (8.4-10.2) mg/dL Albumin 5.0 4.1 (3.9-5) g/dL Pituitary panel 02/12/22 02/13/22 Range/Units 13:18 05:46 Sodium 136 L 137 (137-145) mmol/L Potassium 4.6 3.7 (3.6-5.0) mmol/L Chloride 101.4 102.7 (98-107) mmol/L Carbon Dioxide 25 20 L (22-30) mmol/L BUN 8 6 L (7-17) mg/dL Creatinine 0.7 0.5 L (0.6-1.2) mg/dL Glucose 113 H 109 H (65-100) mg/dL Calcium 9.8 8.8 (8.4-10.2) mg/dL Adrenal panel 02/12/22 02/12/22 02/13/22 Range/Units 13:18 13:18 05:46 Sodium 136 L 137 (137-145) mmol/L Potassium 4.6 3.7 (3.6-5.0) mmol/L Chloride 101.4 102.7 (98-107) mmol/L Carbon Dioxide 25 20 L (22-30) mmol/L BUN 8 6 L (7-17) mg/dL Creatinine 0.7 0.5 L (0.6-1.2) mg/dL Glucose 113 H 109 H (65-100) mg/dL Calcium 9.8 8.8 (8.4-10.2) mg/dL Total Bilirubin 0.30 0.40 (0.1-1.2) mg/dL AST 18 13 (5-40) units/L ALT 14 11 (7-56) units/L Alkaline Phosphatase 81 82 (35-129) units/L Total Protein 8.9 H 7.5 (6.3-8.2) g/dL Albumin 5.0 4.1 (3.9-5) g/dL - Imaging CT scan - abdomen: report reviewed, image reviewed CT scan - pelvis: report reviewed, image reviewed US - abdomen: report reviewed, image reviewed Assessment and Plan 41-year-old female with acute cholecystitis, dilated common bile duct without evidence of choledocholithiasis CT abdomen and pelvis and ultrasound abdomen images and report reviewed independently. LFTs and bilirubin within normal limits Plan: 1.NPO 2. IVF 3. prn pain and nausea control 4. DVT ppx 5. IV abx 6. Discussed results of imaging and labs with patient. Although common bile duct is dilated, LFTs and bilirubin are within normal limits - ? passed stone. Discussed dx of cholecystitis and indication for cholecystectomy with patient. All risks, benefits, alternatives to surgery discussed. Given the patient's degree of discomfort/pain, recommend proceeding with surgery today. We will perform cholecystectomy with IOC to evaluate common bile duct. Explained to patient that if IOC is positive for obstructive stone, she may need an ERCP. She understands. Patient added to the OR for today. Consent obtained. Thank you for this consultation. Please call with any questions or concerns. Evaluation and treatment of this patient was during the time of the national and state emergency arising from COVID19 coronavirus pandemic. Treatment and procedures performed meet the current and available best practice and guidelines for patient during the COVID pandemic.
[2022-02-13] MEDS ORDERED: ALBUTEROL 2.5 MG/3 ML NEBU IH PRN (09:59)
--- NOTE | 2022-02-13 15:14 | Anesthesia Consultation ---
Anesthesia Consult and Med Hx Date of service: 02/13/22 - Airway Anesthetic Teeth Evaluation: Good ROM Head & Neck: Adequate Mental/Hyoid Distance: Adequate Mallampati Class: Class I Intubation Access Assessment: Probably Good - Pre-Operative Health Status ASA Pre-Surgery Classification: ASA2 Proposed Anesthetic Plan: General - Pulmonary Hx Smoking: Yes (marijuana only) - Gastrointestinal Hx Gastroesophageal Reflux Disease: Yes - Endocrine Hx Liver Disease: Yes (gallbladder disease) - Other Systems Hx Substance Use: Yes (marijuana daily)
--- NOTE | 2022-02-13 15:15 | Anesthesia Day of Surgery ---
Anesthesia Day of Surgery - Day of Surgery Patient Examined: Yes Patient H&P Reviewed: Yes Patient is NPO: Yes
[2022-02-13] MEDS ORDERED: propofoL 200 MG/20 ML VIAL IV ONE (17:57)
[2022-02-13] MEDS ORDERED: MIDAZOLAM 2 MG/2 ML INJ ONE (17:57)
[2022-02-13] MEDS ORDERED: fentaNYL 100 MCG/2 ML INJ ONE (17:57)
[2022-02-13] MEDS ORDERED: BUPIVACAINE/PF (0.5%) 5 MG/1 ML 30 ML VIAL INFILTRATI ONE ×2 (18:05→18:59)
[2022-02-13] MEDS ORDERED: LIDOCAINE (1%) 10 MG/1 ML VIAL 20 ML MDV ONE (18:05)
[2022-02-13] MEDS ORDERED: SODIUM CHLORIDE 0.9% 100 ML ONE (18:42)
[2022-02-13] MEDS ORDERED: SODIUM CHLORIDE 0.9% IRRIG SOLN 2000 ML IR ONE (19:00)
[2022-02-13] MEDS ORDERED: SODIUM CHLORIDE 0.9% 100 ML IVPB IV ONE (19:00)
[2022-02-13] MEDS ORDERED: LIDOCAINE (1%) 10 MG/1 ML VIAL 20 ML MDV INFILTRATI ONE (19:00)
[2022-02-13] MEDS ORDERED: WATER FOR IRRIG STERILE 1,500 ML BOTTLE IR ONE (19:01)
[2022-02-13] MEDS ORDERED: HYDROmorphone 1 MG/1 ML INJ ONE (19:25)
[2022-02-13] MEDS ORDERED: ROCURONIUM 50 MG/5 ML INJ IV ONE (19:28)
[2022-02-13] MEDS ORDERED: KETOROLAC 30 MG/1 ML INJ ONE (19:28)
[2022-02-13] MEDS ORDERED: dexAMETHasone 20 MG/5 ML VIAL ONE (19:28)
[2022-02-13] MEDS ORDERED: ONDANSETRON 4 MG/2 ML INJ ONE (19:28)
[2022-02-13] MEDS ORDERED: LIDOCAINE MPF (2%) 20 MG/1 ML VIAL 5 ML ONE (19:29)
[2022-02-13] MEDS ORDERED: LACTATED RINGERS 1,000 ML ONE (19:29)
[2022-02-13] MEDS ORDERED: GLYCOPYRROLATE 0.4 MG/2 ML INJ ONE (19:36)
[2022-02-13] MEDS ORDERED: NEOSTIGMINE 10MG/10 ML INJ MDV ONE (19:36)
--- NOTE | 2022-02-13 19:47 | Operative Report ---
Operative Report Operative Report: Date of operation: 02/13/2022 Preoperative diagnosis: Acute cholecystitis, dilated common bile duct postOperative diagnoses: Acute cholecystitis, dilated common bile duct Procedure performed: Laparoscopic cholecystectomy, IOC Surgeon: Emerald Chaudhari DO Manager Configuration Surgeon: MD Irma Anesthesia: Gen. endotracheal anesthesia, local Findings: Distended and inflamed gallbladder with adhesions to the omentum, multiple stones, pericholecystic fluid Specimen: Gallbladder Estimated blood loss: 25 cc Complications: None Disposition: Stable to PACU HPI an indication: 31-year-old female who presented to the emergency room with acute onset right upper quadrant abdominal pain for 3 days, nausea, vomiting. CT scan and ultrasound of the abdomen revealed acute cholecystitis with dilated common bile duct but no evidence of choledocholithiasis. LFTs and bilirubin were within normal limits. It was recommended that the patient undergo cholecystectomy with IOC. All risks, benefits, alternatives to surgery were discussed in detail and questions answered. Consent was obtained for laparoscopic, possible open cholecystectomy, cholangiogram. Procedure in detail: The patient was identified in the preoperative area and taken back to the operating room, placed on the operating room table in supine position. After anesthesia was induced, the abdomen was prepped and draped in usual sterile fashion and timeout was performed. Local anesthetic was infiltrated into all of the skin incision sites. A supraumbilical incision was made through which a Veress needle was inserted. The Veress needle positioning was confirmed using saline drop test and the abdomen insufflated to 15 mmHg without incident. The Veress needle was then removed and a 5 mm Optiview trocar placed through this incision. The abdomen was inspected and there was no underlying injury to the abdominal structures. The patient was then placed into reverse Trendelberg and tilted to the left. There were adhesions from the right lobe of the liver to the anterior abdominal wall. The gallbladder was very distended and could not be grasped. The gallbladder was decompressed using a laparoscopic needle and approximately 90 cc of clear light bile was evacuated. Adhesions from the liver to the anterior abdominal wall were dissected using hook electrocautery. The gallbladder was retracted cephalad and above the liver. Omental adhesions to the gallbladder were dissected using hook electrocautery and bluntly until the neck of the gallbladder could be visualizaed. The cystic duct and artery were carefully skeletonized. The medial and lateral peritoneal attachments to the gallbladder were dissected using a combination of blunt dissection with the [place] and hook electrocautery. There was pericholecystic fluid encountered during the dissection. The cystic duct and artery were the only 2 structures seen entering the gallbladder and the critical view was successfully obtained. 2 clips were placed on the proximal aspect of the cystic artery and 1 distally this was transected in between the clips using EndoShears. One clip was placed on the distal aspect of the cystic duct and a ductotomy created using endoshears. The cholangiogram catheter was inserted into the cystic duct and secured with terrazas clamp. The seal was checked with injectable saline and there was no leakage. The cholangiogram was then performed with diluted omnipaque dye. There were 2-3 small round filling defects seen floating in the common bile duct near the junction between the CBD and cystic duct. The intrahepatic ducts, duodenum, and the CBD filled with contrast promptly with normal tapering of the duct. Uncertain if the round filling defects were bubbles vs stones. The cholangiogram catheter was removed. 3 clips were placed on the proximal cystic duct and the duct transected with endoshears. The gallbladder was dissected from the liver bed using electrocautery. The gallbladder was placed into a Endo Catch bag and removed from the abdomen via the 12mm port. The gallbladder fossa was then inspected and there was no identifiable bleeding or bile leakage. Hemostasis was ensured. The clips on the cystic duct and artery were visualized and intact. The patient was then placed into neutral position. Vinson's pouch and gallbladder fossa were irrigated until irrigant returned clear. The 12 mm port fascia was closed with interrupted 0 Vicryl suture x3 using the Azeem Howard device. The remaining ports were removed under direct visualization. Skin incisions were closed with 4-0 Monocryl subcuticular stitches and skin glue. All skin incisions were once again infiltrated with local anesthetic. At the end case all sponge, instrument, sharp counts were correct 2. The patient was awoken from anesthesia, extubated, and taken to PACU in stable condition.
--- NOTE | 2022-02-13 20:05 | Fluoroscopy Report ---
Abdominal fluoroscopy INDICATION: Abdominal pain IMPRESSION: Injected contrast is identified within the common bile duct which appears mildly dilated. Several tiny 1 mm filling defects are identified within the distal common bile duct, indeterminate. Fluoroscopy time: 0.3 seconds. Fluoroscopic images: 1. Signer Name: Rc Cárdenas MD Signed: 02/13/2022 8:00 PM Workstation Name: [id number]
--- NOTE | 2022-02-13 20:21 | Post Anesthesia Evaluation ---
- Post Anesthesia Evaluation Patient Participated: Yes Airway Patent: Yes Stable Respiratory Function: Yes Nausea/Vomiting: No Temp > 96.8F: Yes Pain Manageable: Yes Adequeate Hydration: Yes Anesthesia Complications: No Block Receding Appropriately: Not Applicable Patient on Ventilator: No
[2022-02-14] MEDS: THIAMINE 100 MG, FOLIC ACID 1 MG, MULTIPLE VITAMIN INJ, ADULT 10 ML in SODIUM CHLORIDE ... IV SCH (00:21)
[2022-02-14] MEDS: HYDROcodone/ACETAMINOPHEN 5-325 MG TAB PO PRN ×2 (02:54→09:25)
[2022-02-14 04:52] VITALS: BP 121/77
[2022-02-14] MEDS ORDERED: PIPERACIL/TAZOBACTA 4.5/NS 100 4.5 GM/100 ML VIAL IV ONE (05:15)
[2022-02-14] MEDS: MORPHINE 2 MG/1 ML INJ IV PRN ×2 (05:32)
[2022-02-14] MEDS: PIPERACIL/TAZOBACTA 4.5/NS 100 4.5 GM/100 ML VIAL IV SCH (05:32)
[2022-02-14 06:53] LABS: Basophils % (Auto) 0.1 % (0.0-1.8); Hematocrit 34.4 % (30.3-42.9); Hemoglobin 11.7 gm/dl (10.1-14.3); Lymphocytes # (Auto) 0.8 K/mm3 (1.2-5.4); Lymphocytes % (Auto) 12.5 % (13.4-35.0); Mean Corpuscular HGB Conc 34 % (30-34); Mean Corpuscular Volume 98 fl (79-97); Monocytes # (Auto) 0.5 K/mm3 (0.0-0.8); Monocytes % (Auto) 6.8 % (0.0-7.3); Platelet Count 235 K/mm3 (140-440); Red Blood Count 3.49 M/mm3 (3.65-5.03); Red Cell Distribution Width 12.4 % (13.2-15.2)
[2022-02-14 07:07] LABS: Alanine Aminotransferase 37 units/L (7-56); Albumin 3.5 g/dL (3.9-5); Blood Urea Nitrogen 5 mg/dL (7-17); Calcium 8.5 mg/dL (8.4-10.2); Hemolysis Index 5
[2022-02-14 07:20] LABS: BUN/Creatinine Ratio 10; Bilirubin,Direct < 0.2 mg/dL (0-0.2)
[2022-02-14] MEDS: FAMOTIDINE 20 MG/2 ML INJ IV SCH (09:18)
[2022-02-14] MEDS: HEPARIN 5,000 UNIT/1 ML VIAL SUB-Q SCH (09:19)
--- NOTE | 2022-02-14 09:41 | Magnetic Resonance Report ---
MR ABDOMEN MRCP INDICATION / CLINICAL INFORMATION: dilated cbd, ABD PAIN. TECHNIQUE: Multiplanar, multisequence MR images were obtained. MRCP imaging was also performed. COMPARISON: CT abdomen 02/12/2022. Intraoperative cholangiogram previous day. FINDINGS: Status post cholecystectomy. The bile duct remains dilated measuring approximately 9 mm. The bile raul t tapers normally distally. No intraluminal filling defect or obvious mass is identified. The pancrea tic duct is unremarkable. The imaged parenchymal organs are unremarkable in appearance. There is mild fluid at the right upper quadrant adjacent to the liver, at the seventh pelvic space and adjacent to the duodenum. No discrete fluid collection is identified. IMPRESSION: 1. Interval cholecystectomy. Expected postoperative change identified. No localized fluid collection. 2. Persistent dilatation the bile duct. No intraluminal filling defect is identified. Signer Name: Hany Miranda MD Signed: 02/14/2022 9:36 AM Workstation Name: [id number]
--- NOTE | 2022-02-14 10:56 | Progress Note ---
Assessment and Plan 31 yo F s/p lap tre with IOC, POD 1 Plan: 1. MRCP for indeterminate findings during IOC - MRCP done this am and negative for choledocolithiasis 2. Reg diet 3. prn pain control 4. ok to dc abx 5. DVT ppx 6. OOB/ambulate 7. DC planning to home today if charles diet Pt given verbal and written dc instructions and advised to follow up in surgery clinic in 2 wks D/W Dr. Levine Thank you, please call with questions. Subjective Date of service: 02/14/22 Narrative: Pt seen and examined. c/o mild incisional pain. No n/v. No f/c. Preop RUQ pain is resolved. Objective Vital Signs - 12hr 02/14/22 02/14/22 00:00 04:03 Temperature 98.7 F Pulse Rate 64 Respiratory 18 16 Rate Blood Pressure 121/77 O2 Sat by Pulse 98 100 Oximetry - General physical appearance Narrative Exam: Gen; AAOx3. NAD CV: S1, S2+ Resp: even and unlabored Abd: soft, NT, ND. incisions c/d/i Ext: no c/c/e - Labs 02/14/22 06:11 02/14/22 06:11 Diabetes panel 02/14/22 Range/Units 06:11 Sodium 138 (137-145) mmol/L Potassium 3.8 (3.6-5.0) mmol/L Chloride 105.0 (98-107) mmol/L Carbon Dioxide 22 (22-30) mmol/L BUN 5 L (7-17) mg/dL Creatinine 0.5 L (0.6-1.2) mg/dL Glucose 125 H (65-100) mg/dL Calcium 8.5 (8.4-10.2) mg/dL AST 39 (5-40) units/L ALT 37 (7-56) units/L Alkaline Phosphatase 70 (35-129) units/L Total Protein 6.6 (6.3-8.2) g/dL Albumin 3.5 L (3.9-5) g/dL Calcium panel 02/14/22 Range/Units 06:11 Calcium 8.5 (8.4-10.2) mg/dL Albumin 3.5 L (3.9-5) g/dL Pituitary panel 02/14/22 Range/Units 06:11 Sodium 138 (137-145) mmol/L Potassium 3.8 (3.6-5.0) mmol/L Chloride 105.0 (98-107) mmol/L Carbon Dioxide 22 (22-30) mmol/L BUN 5 L (7-17) mg/dL Creatinine 0.5 L (0.6-1.2) mg/dL Glucose 125 H (65-100) mg/dL Calcium 8.5 (8.4-10.2) mg/dL Adrenal panel 02/14/22 Range/Units 06:11 Sodium 138 (137-145) mmol/L Potassium 3.8 (3.6-5.0) mmol/L Chloride 105.0 (98-107) mmol/L Carbon Dioxide 22 (22-30) mmol/L BUN 5 L (7-17) mg/dL Creatinine 0.5 L (0.6-1.2) mg/dL Glucose 125 H (65-100) mg/dL Calcium 8.5 (8.4-10.2) mg/dL Total Bilirubin 0.40 (0.1-1.2) mg/dL AST 39 (5-40) units/L ALT 37 (7-56) units/L Alkaline Phosphatase 70 (35-129) units/L Total Protein 6.6 (6.3-8.2) g/dL Albumin 3.5 L (3.9-5) g/dL
--- NOTE | 2022-02-14 13:40 | Discharge Summary ---
Providers - Providers Date of Admission: 02/12/22 21:33 Date of discharge: 02/14/22 Attending physician: STEFFEN MONGE MD 02/12/22 21:20 Consult to Physician [CONS] Stat Comment: Dr. Trimble to see patient upon admission. Consulting Provider: LASHAWN TRIMBLE Physician Instructions: admit to hospitalist, pain meds, iv antibiotics Reason For Exam: acute cholecystitis Primary care physician: LORRAINE AVINA Hospitalization Reason for admission: cholecystitis Condition: Stable Hospital course: 31-year-old female history of gallstones who presented with worsening right upper quadrant pain x3 days. Ultrasound of the abdomen showed cholelithiasis with positive [place] sign. CT of the abdomen pelvis confirmed probable acute cholecystitis. General surgery was consulted and laparoscopic cholecystectomy was performed on 02/13. Fluoroscopic cholangiogram intraoperatively showed dilatation of the common bile duct and several tiny filling defects within the distal common bile duct. MRCP was unremarkable. Once the patient tolerated oral diet, she was discharged instructed to follow-up with general surgery within 2 weeks. Disposition: 01 HOME / SELF CARE / HOMELESS Final Discharge Diagnosis (Prints w/discharge instructions): Acute ch olecystitis. Dilated common bile duct. Cholelithiasis. Tobacco abuse. History of alcohol abuse Time spent for discharge: 35 minutes Core Measure Documentation - Palliative Care Palliative Care/ Comfort Measures: Not Applicable - Core Measures Any of the following diagnoses?: none Exam - Physical Exam Narrative exam: GENERAL: Well-developed well-nourished. In no acute distress. HEENT: Normocephalic. Atraumatic. NECK: Supple. CHEST/LUNGS: CTAB on room air HEART/CARDIOVASCULAR: RRR. No murmur, rubs or gallops appreciated. ABDOMEN: Abdominal surgical scars intact with glue. +BS. NT/ND. SKIN: No rashes noted. NEURO: No focal motor deficit. Follows all commands. MUSCULOSKELETAL: No joint effusion EXTREMITIES: No cyanosis, clubbing or edema. PSYCH: Cooperative. - Constitutional Vitals: Temp Pulse Resp BP Pulse Ox 98.7 F 64 16 121/77 97 02/14/22 04:03 02/14/22 04:03 02/14/22 04:03 02/14/22 04:03 02/14/22 11:55 Plan Care Plan Goals: Please make an appointment to follow-up with Dr. Trimble in clinic in 2 weeks. If you experience return of your symptoms and are unable to tolerate food please return to the ED. Follow up with: LORRAINE AVINA MD [Primary Care Provider] - 3-5 Days Prescriptions: HYDROcodone/APAP 5-325 [[place] 5-325 mg TAB] 1 each PO Q4H PRN 3 Days #18 tablet PRN Reason: Pain, Moderate (4-6) Ondansetron (Nf) [Zofran TAB] 8 mg PO Q8HR PRN 7 Days #21 tablet PRN Reason: Nausea
== END 2022-02-14 16:23 | disposition home or self-care (01) | DRG 419 ==
LOC: ED 13:00 → 3A 21:33
PROVIDERS: ADMIT Hospitalist; ATTEND Student in an Organized Health Care Education/Training Program
PROC: 0FT44ZZ Resection of Gallbladder, Percutaneous Endoscopic Approach (ICD-10-PCS; principal; 2022-02-13)
PROC: BF121ZZ Fluoroscopy of Gallbladder using Low Osmolar Contrast (ICD-10-PCS; 2022-02-13)
DX: K81.0 Acute cholecystitis (principal); F17.200 Nicotine dependence, unspecified, uncomplicated; K21.9 Gastro-esophageal reflux disease without esophagitis; F10.10 Alcohol abuse, uncomplicated; Y90.9 Presence of alcohol in blood, level not specified; Z71.6 Tobacco abuse counseling; Z71.41 Alcohol abuse counseling and surveillance of alcoholic; Z79.899 Other long term (current) drug therapy
CPT/HCPCS: 36415; 74177; 74181; 74300; 76705; 80048; 80053; 80076; 81001; 81025; 83690; 85025; 85610; 88304; 94640; G0378; J1815; J3490; J7070; J1100; J1170; J1644; J1885; J2250; J2270; J2405; J2543; J2704; J2710; J3010; J3411; J7030; J7120; Q0162; Q9967